=== PATIENT | female | born 1945 | race Caucasian/White ===

== ENCOUNTER 2024-03-07 12:35 | Outpatient (CLI) | payer OTHER | END 2024-03-07 12:36 | disposition home or self-care (01) | LOC: CSHRAD 12:35 | PROVIDERS: ATTEND Psychiatry & Neurology Neurology | DX: E85.4 Organ-limited amyloidosis (principal) | CPT/HCPCS: 93880 ==

== ENCOUNTER 2024-03-15 15:05 | Outpatient (CLI) | payer OTHER | END 2024-03-15 15:06 | disposition home or self-care (01) | LOC: CSHMRI 15:05 | PROVIDERS: ATTEND Family Medicine | DX: M50.00 Cervical disc disorder with myelopathy, unspecified cervical region (principal); M48.02 Spinal stenosis, cervical region | CPT/HCPCS: 72141 ==